=== PATIENT | female | born 1950 | race Native Hawaiian/Other Pacific Islander ===

== ENCOUNTER 2019-02-27 07:43 | Outpatient (CLI) | payer OTHER ==
[~2019-02-27] VITALS: Ht 167.6 cm; Wt 68.5 kg
[~2019-02-27 07:43] MED LIST: AMLO5TAB PO; ASPIRIN325 M1 PO; CELEXA20 MG PO; CLONIDINE0.2 MG PO; GABA100C2 PO; MECLIZINE25 MG PO; METO50TA27 PO; PAROXETINE10 MG PO; PRINIVIL5 MG PO
== END 2019-02-27 20:54 | disposition home or self-care (01) ==
LOC: NM 07:43
DX: R06.02 Shortness of breath (principal); I10 Essential (primary) hypertension; R00.1 Bradycardia, unspecified
CPT/HCPCS: 93306; A9500; J2785

== ENCOUNTER 2021-07-02 10:10 | Outpatient (CLI) | payer OTHER ==
[2021-07-02 10:33] LABS: PLATELET COUNT 170 K/uL (152-353)
[2021-07-02 10:37] LABS: POTASSIUM 3.6 mmol/L (3.6-5.2)
== END 2021-07-02 19:24 | disposition home or self-care (01) ==
LOC: LABW 10:10
PROVIDERS: ATTEND Specialist
DX: Z01.810 Encounter for preprocedural cardiovascular examination (principal); R94.39 Abnormal result of other cardiovascular function study
CPT/HCPCS: 36415; 80048; 85027

== ENCOUNTER 2021-11-17 08:18 | Outpatient (CLI) | payer OTHER | END 2021-11-17 18:57 | disposition home or self-care (01) | LOC: LABW 08:18 | PROVIDERS: ATTEND Nurse Practitioner | DX: I25.10 Atherosclerotic heart disease of native coronary artery without angina pectoris (principal); E78.2 Mixed hyperlipidemia | CPT/HCPCS: 36415; 80061; 80076 ==

== ENCOUNTER → 2022-05-18 | Outpatient (CLI) | payer OTHER | LOC: LABW 08:58 | PROVIDERS: ATTEND Nurse Practitioner | DX: E78.49 Other hyperlipidemia (principal); I25.10 Atherosclerotic heart disease of native coronary artery without angina pectoris | CPT/HCPCS: 36415; 80061; 80076 ==